=== PATIENT | male | born 1995 | race Caucasian/White ===

== ENCOUNTER 2017-01-07 21:46 | Emergency (ER) | payer MEDICAID ==
[2017-01-07 22:05] VITALS: TEMP 98.8
--- NOTE | 2017-01-07 22:29 | EDPHY ---
H & P Stated Complaint: WALSH, hit head on Friday Time Seen by Provider: 01/07/17 22:29 HPI/ROS: HPI: This is a 21-year-old male presents with Chief Complaint: WALSH, hit head on Friday Location: Frontal head Quality: Aching Duration: 1-2 days Signs and Symptoms: Positive nausea, no vomiting, positive dizziness, positive eye fatigue, no neck stiffness, no fever Timing: Gradual onset Severity: Moderate Context: Patient reports that he has a history of 3 concussions in the past and presents today with complaints of a concussion. He was skateboarding Friday on [address] and went into a gutter, losing his balance, and falling face forward onto the cement. He uses arms to brace his fall and prevent his head from hitting the cement. He is not sure if he lost consciousness but he reports he was confused at 1st and disoriented. He he was ambulatory at the scene. Skateboard back to campus. Yesterday while he was trying to study, he kept getting headaches dull aching pressure-like in the front part of his head accompanied by nausea, eye strain and difficulty concentrating. He denies any vomiting/fever/neck stiffness/abdominal pain. Modifying Factors: Has not tried any [id number] medications Comment: ROS: see HPI Constitutional: No fever, no chills, no weight loss Eyes: No blurred vision Respiratory: No shortness of breath, no cough Cardiovascular: No chest pain Gastrointestinal: No nausea, no vomiting, no diarrhea Genitourinary: No dysuria Extremities: No myalgias Neurologic: No weakness, no numbness Skin: No rashes Hematologic: No bruising, no bleeding MEDICAL/SURGICAL/SOCIAL HISTORY: Medical history: Depression Surgical history: Right knee surgery Social history: College student CONSTITUTIONAL: Pleasant young adult male, awake and alert, no obvious distress HEENT: Atraumatic and normocephalic, PERRL, EOMI. Tympanic membranes clear. Oropharynx clear, no exudate and moist pink mucosa. Airway patent. No lymphadenopathy. Neck: Supple, no midline tenderness, full range of motion. No meningismus. Cardiovascular: Normal S1/S2, regular rate, regular rhythm, without murmur rub or gallop. PULMONARY/CHEST: Symmetrical and nontender. Clear to auscultation bilaterally. Good air movement. No accessory muscle usage. ABDOMEN: Soft, nondistended, nontender, no rebound, no guarding, no peritoneal signs, no masses or organomegaly. No CVAT. EXTREMITIES: 2/2 pulses, no deformities, no clubbing, no cyanosis or edema. NEUROLOGICAL: no focal neuro deficits. GCS 15. Cranial nerves 2-12 grossly intact. SKIN: Warm and dry, no erythema. no rash. Good capillary refill. Source: Patient Exam Limitations: No limitations - Personal History Current Tetanus/Diphtheria Vaccine: Yes Current Tetanus Diphtheria and Acellular Pertussis (TDAP): Yes - Medical/Surgical History Hx Asthma: No Hx Chronic Respiratory Disease: No Hx Diabetes: No Hx Cardiac Disease: No Hx Renal Disease: No Hx Cirrhosis: No Hx Alcoholism: No Hx HIV/AIDS: No Hx Splenectomy or Spleen Trauma: No Other PMH: R knee surgery - Social History Smoking Status: Never smoked Constitutional: Initial Vital Signs Temperature (C) 37.1 C 01/07/17 22:01 Heart Rate 95 01/07/17 22:01 Respiratory Rate 18 01/07/17 22:01 Blood Pressure 134/90 H 01/07/17 22:01 O2 Sat (%) 96 01/07/17 22:01 O2 Delivery Mode Room Air Allergies/Adverse Reactions: No Known Allergies Allergy (Unverified 01/07/17 22:01) Home Medications: Medication Instructions Recorded Lexapro 01/07/17 Ondansetron Odt [Zofran Odt 4 mg 4 mg PO Q4 PRN #12 tab 01/07/17 (*)] Medical Decision Making - Diagnostics Imaging Results: Imaging Impressions Head CT 01/07/17 22:32 Impression: No acute abnormalities. Dr. London discussed these findings by telephone with Britany Garvey on 2016 at 2307 hours. ED Course/Re-evaluation: Due to question of LOC and decreased concentration/nausea, decision to obtain head CT scan imaging Given PO Zofran and Tramadol with moderate relief of pain. 2310: Called by radiologist and advised head CT scan shows no acute intracranial process Differential Diagnosis: Head injury including but not limited to concussion, skull fracture, intraparenchymal contusion, subarachnoid, subdural and epidural hematoma. - Data Points Medications Given: Discontinued Medications Ondansetron HCl (Zofran Odt) 4 mg PO EDNOW ONE Stop: 01/07/17 22:56 Last Admin: 01/07/17 23:00 Dose: 4 mg Tramadol HCl (Ultram) 50 mg PO EDNOW ONE Stop: 01/07/17 22:57 Last Admin: 01/07/17 23:00 Dose: 50 mg Departure - Departure Disposition: Home, Routine, Self-Care Clinical Impression: Postconcussion syndrome Concussion Qualifiers: Encounter type: initial encounter Loss of consciousness presence/duration: with LOC of 30 min or less Qualified Code(s): S06.0X1A - Concussion with loss of consciousness of 30 minutes or less, initial encounter Condition: Good Instructions: Concussion (ED), Post Concussion Syndrome (ED) Additional Instructions: Head CT scan today does not show any acute intracranial process. Please avoid any physical and contact activities. Rest as much as possible. Avoid eye strain and excessive reading/watching TV/playing video games until symptoms resolve. You may take Tylenol and/or ibuprofen as needed for headache. Use Zofran every 4-6 hours as needed for nausea. Please follow up with [facility] in 7-10 days for repeat concussion examination. Referrals: [facility],. [Clinic] - As per Instructions Stand Alone Forms: School Excuse Prescriptions: Ondansetron Odt [Zofran Odt 4 mg (*)] 4 mg PO Q4 PRN #12 tab PRN Reason: Nausea/Vomiting, Use 1st
[2017-01-07] MEDS ORDERED: ONDANSETRON DISINTEGRATING 4 MG TAB PO ONE (22:55)
[2017-01-07] MEDS ORDERED: traMADol 50 MG TAB PO ONE (22:56)
[2017-01-07] MEDS ORDERED: ONDANSETRON 4MG PREPACK#2 BTL TAKEHOME ONE (23:28)
[2017-01-07 23:43] VITALS: BP 131/80; PULSE 76; RESP 16; O2SAT 97
== END 2017-01-07 23:43 | disposition home or self-care (01) ==
DX: S06.0X1A Concussion with loss of consciousness of 30 minutes or less, initial encounter (principal); F07.81 Postconcussional syndrome; W18.09XA Striking against other object with subsequent fall, initial encounter; Y92.410 Unspecified street and highway as the place of occurrence of the external cause; Y99.8 Other external cause status; Y93.51 Activity, roller skating (inline) and skateboarding